=== PATIENT | male | born 1940 | race Caucasian/White ===

== ENCOUNTER 2017-03-17 06:47 | Emergency (ER) | payer MEDICARE, OTHER ==
[~2017-03-17] VITALS: Ht 170.2 cm; Wt 71.8 kg
[2017-03-17] MEDS ORDERED: FISH100049 PO (06:59)
[2017-03-17] MEDS ORDERED: REFR0.1D OU (06:59)
[2017-03-17] MEDS ORDERED: BETI1SOL OU (06:59)
[2017-03-17] MEDS ORDERED: OMEP40CA2 PO (06:59)
[2017-03-17] MEDS ORDERED: ASPI325T24 PO (06:59)
[2017-03-17] MEDS ORDERED: XIID5DRO OU (06:59)
[2017-03-17] MEDS ORDERED: VITA500046 PO (06:59)
[2017-03-17] MEDS ORDERED: NS 500 ML IV ONE (07:15)
[2017-03-17 07:41] LABS: BASO % 0.5 % (0.0-1.0); EOS # 0.1 10^3/uL (0.0-0.50); EOS % 2.7 % (0.0-3.0); IMMATURE GRANULOCYTE % 0.2 % (0-0); LYMPH # 1.5 10^3/uL (1.5-4.5); LYMPH % 32.8 % (24.0-44.0); MEAN CORPUSCULAR HEMOGLOBIN 32.2 pg (27.0-33.0); MEAN CORPUSCULAR HGB CONC 35.2 g/dl (32.0-36.5); MEAN CORPUSCULAR VOLUME 91.2 fl (80.0-96.0); MONO # 0.6 10^3/uL (0.0-0.8); NEUTROPHILS # 2.2 10^3/uL (1.8-7.7); NEUTROPHILS % 49.8 % (36.0-66.0); PLATELET COUNT, AUTOMATED 192 10^3/uL (150-450); RED CELL DISTRIBUTION WIDTH 12.7 % (11.5-14.5); WHITE BLOOD COUNT 4.4 10^3/uL (4.0-10.0)
[2017-03-17 08:13] LABS: ALBUMIN 3.9 GM/DL (3.2-5.2); ALBUMIN/GLOBULIN RATIO 1.08 (1.00-1.93); ALKALINE PHOSPHATASE 67 U/L (45-117); ALT/SGPT 26 U/L (12-78); ANION GAP 6 MEQ/L (8-16); AST/SGOT 18 U/L (7-37); BILIRUBIN,DIRECT < 0.1 MG/DL (0.0-0.2); BILIRUBIN,TOTAL 0.4 MG/DL (0.2-1.0); BLOOD UREA NITROGEN 17 MG/DL (7-18); CALCIUM LEVEL 8.8 MG/DL (8.8-10.2); CARBON DIOXIDE LEVEL 29 MEQ/L (21-32); CHLORIDE LEVEL 107 MEQ/L (98-107); CREATININE FOR GFR 0.81 MG/DL (0.70-1.30); GLOMERULAR FILTRATION RATE > 60.0 (>42); GLUCOSE, FASTING 106 MG/DL (83-110); POTASSIUM SERUM 3.9 MEQ/L (3.5-5.1); SODIUM LEVEL 142 MEQ/L (136-145); TOTAL PROTEIN 7.5 GM/DL (6.4-8.2)
[2017-03-17 10:35] VITALS: O2SAT 97
[2017-03-17 14:52] VITALS: BP 134/77
--- NOTE | 2017-03-17 19:29 | ECGEPIP ---
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
--- NOTE | 2017-03-17 19:38 | ECGEPIP ---
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
--- NOTE | 2017-03-17 20:56 | REP ---
CT brain without contrast: History: Weakness. No comparison imaging. Findings: Bone window settings demonstrate an intact bony calvarium. The digital wet pour supervisor radiograph is unremarkable. Visualized paranasal sinuses are clear. No intraorbital abnormality is seen. There is mild vascular calcification in the distal carotid arteries. On soft tissue window settings, there is mild diffuse cerebral atrophy. Sterling-white differentiation pattern is intact. There is no evidence of infarct or hemorrhage. No mass or extra-axial fluid collection is seen. Impression: Mild diffuse cerebral atrophy and vascular calcification. No acute intracranial abnormality. Signed by Judah Arango MD 03/18/2017 08:08 A
== END 2017-03-17 14:56 | disposition home or self-care (01) ==
LOC: M ED 06:47
DX: R42 Dizziness and giddiness (principal); I51.9 Heart disease, unspecified; H40.9 Unspecified glaucoma; Z79.82 Long term (current) use of aspirin; Z79.899 Other long term (current) drug therapy

== ENCOUNTER 2018-04-20 11:03 | Day surgery (SDC) | payer MEDICARE, OTHER ==
[~2018-04-20] VITALS: Ht 170.2 cm; Wt 74.8 kg
[~2018-04-20 11:03] MED LIST: ASPI325T PO; ASPI325T25 PO; BETI1SOL OU; FISH100049 PO; MULT1TAB10 PO; NS 1,000 ML IV ONE; OMEP40CA2 PO; REFR0.1D OU; TIMO0.5S42 OU; VITA500046 PO; XIID5DRO OU
[2018-04-20] MEDS ORDERED: PROPOFOL 200 MG/20 ML VIAL As Ordered ONE (12:49)
[2018-04-20] MEDS ORDERED: LIDOCAINE 2% INJ 100 MG/5 ML SDV (FOR ANES.) As Ordered ONE (12:49)
--- NOTE | 2018-04-20 13:15 | ROOR ---
Patient Name: Josue Beth Procedure Date: 04/20/2018 12:45 PM Date of : 1940 Age: 77 Room: [facility] Gender: Male Note Status: Finalized Procedure: Total Colonoscopy to Cecum + Biopsy Polypectomy Indications: High risk colon cancer surveillance: Personal history of colonic polyps, Last colonoscopy: 2005 Providers: Robe Rizvi MD Referring MD: Denise Hillman Np Requesting Provider: Medicines: Monitored Anesthesia Care Complications: No immediate complications. Procedure: Pre-Anesthesia Assessment: - The heart rate, respiratory rate, oxygen saturations, blood pressure, adequacy of pulmonary ventilation, and response to care were monitored throughout the procedure. The Colonoscope was introduced through the anus and advanced to the cecum, identified by appendiceal orifice and ileocecal valve. The colonoscopy was performed without difficulty. The patient tolerated the procedure well. The quality of the bowel preparation was excellent. Findings: The perianal and digital rectal examinations were normal. Non-bleeding internal hemorrhoids were found during retroflexion. The hemorrhoids were small and Grade I (internal hemorrhoids that do not prolapse). Multiple small and large-mouthed diverticula were found in the recto-sigmoid colon, sigmoid colon and descending colon. A small polyp was found in the mid ascending colon. The polyp was sessile. The polyp was removed with a jumbo cold forceps. Resection and retrieval were complete. The exam was otherwise without abnormality on direct and retroflexion views. Impression: - Non-bleeding internal hemorrhoids. - Diverticulosis in the recto-sigmoid colon, in the sigmoid colon and in the descending colon. - One small polyp in the mid ascending colon, removed with a jumbo cold forceps. Resected and retrieved. - The examination was otherwise normal on direct and retroflexion views. - The exam was otherwise normal to the cecum. Recommendation: - Patient has a contact number available for emergencies. The signs and symptoms of potential delayed complications were discussed with the patient. Return to normal activities tomorrow. Written discharge instructions were provided to the patient. - High fiber diet. - Discharge patient to home. - Continue present medications. - Await pathology results. - Telephone GI clinic for pathology results in 1 week. - Repeat colonoscopy for symptoms only. - Return to referring physician. - Check Portal Online for Path Results.([email or web address]) - The findings and recommendations were discussed with the patient's family. Robe Rizvi MD Robe Rizvi MD 04/20/2018 1:15:08 PM This report has been signed electronically. Number of Addenda: 0 Note Initiated On: 04/20/2018 12:45 PM Estimated Blood Loss: Estimated blood loss: none.
[2018-04-20 13:52] VITALS: BP 130/63
== END 2018-04-20 14:20 | disposition home or self-care (01) ==
LOC: M OPP 11:03
PROVIDERS: ATTEND Internal Medicine Gastroenterology
DX: Z86.010 Personal history of colon polyps (principal); D12.2 Benign neoplasm of ascending colon; K64.0 First degree hemorrhoids; K57.30 Diverticulosis of large intestine without perforation or abscess without bleeding; R12 Heartburn; Z79.82 Long term (current) use of aspirin; Z79.899 Other long term (current) drug therapy

== ENCOUNTER 2019-04-19 11:00 | Emergency (ER) | payer MEDICARE, OTHER ==
[~2019-04-19] VITALS: Ht 170.2 cm; Wt 76.8 kg
[~2019-04-19 11:00] MED LIST changes: +ASPI-1 PO; +ASPI-255 PO; -ASPI325T PO; -ASPI325T25 PO; -NS 1,000 ML IV ONE; -OMEP40CA2 PO; +OMEP40CA97 PO
[2019-04-19 12:06] LABS: BASO % 0.3 % (0.0-1.0); EOS # 0.2 10^3/uL (0.0-0.5); EOS % 2.1 % (0.0-3.0); HEMATOCRIT 47.3 % (42.0-52.0); HEMOGLOBIN 15.6 g/dl (13.5-17.5); LYMPH % 14.1 % (24.0-44.0); MEAN CORPUSCULAR HEMOGLOBIN 31.4 pg (27.0-33.0); MEAN CORPUSCULAR VOLUME 95.2 fl (80.0-96.0); MONO % 14.2 % (0.0-5.0); PLATELET COUNT, AUTOMATED 186 10^3/uL (150-450); RED BLOOD COUNT 4.97 10^6/uL (4.30-6.10); WHITE BLOOD COUNT 7.3 10^3/uL (4.0-10.0)
--- NOTE | 2019-04-19 12:29 | REP ---
AP PORTABLE CHEST: 04/19/2019. Comparison: Chest x-ray 03/03/2018. Clinical history: Chest pain. Findings: AP seated chest shows a left ventricular configuration of the heart with borderline cardiomegaly. There is a tortuous aorta with ectasia. Degenerative changes in the spine with levoconvex curve in the mid and lower thoracic region. Lungs are well inflated. CP angles are sharply defined. There is no definite effusion, infiltrate, atelectasis or mass. There is no pneumothorax or pneumomediastinum. Airway grossly intact. Bones with degenerative changes in the spine and shoulders, but no acute finding. Impression: 1. Left ventricular configuration of the heart with some borderline cardiomegaly but no vascular redistribution, pulmonary edema, pleural effusion or acute infiltrate. Electronically Signed by Geoffrey Oakes MD 04/19/2019 01:22 P
[2019-04-19 14:01] LABS: ALBUMIN 3.7 GM/DL (3.2-5.2); ALT/SGPT 31 U/L (12-78); BILIRUBIN,DIRECT 0.1 MG/DL (0.0-0.2); BILIRUBIN,TOTAL 0.4 MG/DL (0.2-1.0); BLOOD UREA NITROGEN 11 MG/DL (7-18); CARBON DIOXIDE LEVEL 29 MEQ/L (21-32); CHLORIDE LEVEL 108 MEQ/L (98-107); CK-MB VALUE MASS < 1.0 NG/ML (<3.6); CPK CREATINE PHOSPHOKINASE 57 U/L (39-308); CREATININE FOR GFR 0.67 MG/DL (0.70-1.30); GLOMERULAR FILTRATION RATE > 60.0 (>42); GLUCOSE, FASTING 99 MG/DL (70-100); LIPASE 79 U/L (73-393); MB/CK RELATIVE INDEX 1.75 (< OR =4); NT-PRO BNP 50 PG/ML (<450); POTASSIUM SERUM 4.2 MEQ/L (3.5-5.1); SODIUM LEVEL 143 MEQ/L (136-145); TOTAL PROTEIN 6.5 GM/DL (6.4-8.2); TROPONIN I < 0.02 NG/ML (< 0.10)
[2019-04-19 14:29] VITALS: BP 134/68
--- NOTE | 2019-04-19 19:57 | ECGEPIP ---
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
== END 2019-04-19 14:55 | disposition home or self-care (01) ==
LOC: M ED 11:00
DX: R00.2 Palpitations (principal); R51 Headache; Z79.899 Other long term (current) drug therapy

== ENCOUNTER → 2022-06-10 | Outpatient (CLI) | payer MEDICARE, OTHER ==
[~2022-06-10] MED LIST changes: +OMEP40CA4 PO; -OMEP40CA97 PO
== END ==
LOC: M RAD 12:05
PROVIDERS: ATTEND Internal Medicine
DX: R42 Dizziness and giddiness (principal); I65.23 Occlusion and stenosis of bilateral carotid arteries